=== PATIENT | male | born 1970 | race Caucasian/White ===

== ENCOUNTER 2016-11-14 09:03 | Inpatient (IN) | payer MEDICARE ==
[~2016-11-14] VITALS: Ht 170.2 cm; Wt 68.9 kg
[~2016-11-14 09:03] MED LIST: DIVA500T69 PO; HALO10 PO; HALOD50I IM; LEVE500T53 PO; VARE0.5T PO
[2016-11-14 09:32] VITALS: BP 119/75
[2016-11-14] MEDS ORDERED: HALOPERIDOL 5 MG TABLET PO PRN (09:45)
[2016-11-14] MEDS ORDERED: ZOLPIDEM TARTRATE 10 MG TABLET PO PRN (09:45)
[2016-11-14] MEDS ORDERED: ALBUTEROL SULFATE HFA 90 MCG/PUFF 8 GM INHALER IH PRN (10:45)
[2016-11-14 11:22] VITALS: BP 120/63
[2016-11-14] MEDS ORDERED: MAGNESIUM HYDROXIDE SUSPENSION 30 ML UDCUP PO PRN (12:00)
[2016-11-14] MEDS ORDERED: TUBERCULIN, PURIFIED PROTEIN DERIVATIVE 5 TU/0.1 ML SYG ID ONE (12:00)
[2016-11-14] MEDS ORDERED: GuaiFENesin/D-METHORPHAN [SUGAR-FREE] 200-20MG/10 ML SYRUP UDCUP PO PRN (12:00)
[2016-11-14] MEDS ORDERED: ACETAMINOPHEN 325 MG TABLET PO PRN (12:00)
[2016-11-14] MEDS ORDERED: HALOPERIDOL DECANOATE 50 MG/ML VIAL IM ONE (12:00)
[2016-11-14] MEDS ORDERED: PROMETHAZINE HCL 25 MG TABLET PO PRN (12:00)
[2016-11-14] MEDS ORDERED: LOPERAMIDE HCL 2 MG CAPSULE PO PRN (12:00)
[2016-11-14] MEDS ORDERED: HydrOXYzine PAMOATE 50 MG CAPSULE PO PRN (12:00)
[2016-11-14] MEDS ORDERED: MAG HYDROX/AL HYDROX/SIMETH ES 30 ML SUSPENSION UDCUP PO PRN (12:00)
[2016-11-14] MEDS: LORazepam 2 MG TABLET PO PRN ×2 (13:24→23:08)
[2016-11-14 16:00] VITALS: BP 116/74
[2016-11-14] MEDS: THIAMINE HCL 100 MG TABLET PO SCH (17:23)
[2016-11-14] MEDS: LevETIRAcetam 500 MG TABLET PO SCH (17:23)
[2016-11-14] MEDS: NICOTINE 21 MG/24 HOUR PATCH TD SCH (17:23)
[2016-11-14] MEDS: DIVALPROEX SODIUM 500 MG ER TABLET PO SCH (20:43)
[2016-11-14] MEDS: HALOPERIDOL 10 MG TABLET PO SCH (20:43)
[2016-11-14] MEDS ORDERED: HALOPERIDOL 10 MG TABLET PO SCH (21:00)
[2016-11-15 03:38] VITALS: BP 118/81
[2016-11-15 08:18] VITALS: BP 108/61
[2016-11-15] MEDS: FOLIC ACID 1 MG TABLET PO SCH (09:21)
[2016-11-15] MEDS: MULTIVITAMINS WITH MINERALS, THERAPEUTIC TABLET PO SCH (09:22)
[2016-11-15] MEDS: NICOTINE 21 MG/24 HOUR PATCH TD SCH (09:22)
[2016-11-15] MEDS: THIAMINE HCL 100 MG TABLET PO SCH ×2 (09:22→16:09)
[2016-11-15] MEDS: LevETIRAcetam 500 MG TABLET PO SCH ×2 (09:22→16:09)
[2016-11-15] MEDS: LORazepam 2 MG TABLET PO PRN (14:32)
[2016-11-15] MEDS: QUEtiapine FUMARATE 100 MG TABLET PO PRN (16:23)
[2016-11-15 16:42] VITALS: BP 112/83
[2016-11-15] MEDS: HALOPERIDOL 10 MG TABLET PO SCH (20:17)
[2016-11-15] MEDS: DIVALPROEX SODIUM 500 MG ER TABLET PO SCH (20:17)
[2016-11-16 01:52] VITALS: BP 115/81
[2016-11-16] MEDS: LORazepam 2 MG TABLET PO PRN ×2 (07:26→11:31)
[2016-11-16 08:26] VITALS: BP 106/60
[2016-11-16] MEDS: THIAMINE HCL 100 MG TABLET PO SCH ×2 (08:49→17:04)
[2016-11-16] MEDS: MULTIVITAMINS WITH MINERALS, THERAPEUTIC TABLET PO SCH (08:49)
[2016-11-16] MEDS: FOLIC ACID 1 MG TABLET PO SCH (08:49)
[2016-11-16] MEDS: NICOTINE 21 MG/24 HOUR PATCH TD SCH (08:49)
[2016-11-16] MEDS: LevETIRAcetam 500 MG TABLET PO SCH ×2 (08:49→17:04)
[2016-11-16] MEDS: QUEtiapine FUMARATE 100 MG TABLET PO PRN ×2 (13:14→17:39)
[2016-11-16 16:08] VITALS: BP 119/76
[2016-11-16] MEDS: HALOPERIDOL 10 MG TABLET PO SCH (20:37)
[2016-11-16] MEDS: DIVALPROEX SODIUM 500 MG ER TABLET PO SCH (20:38)
[2016-11-17 00:03] VITALS: BP 121/77
[2016-11-17 01:59] VITALS: BP 105/87
[2016-11-17] MEDS: QUEtiapine FUMARATE 100 MG TABLET PO PRN ×2 (01:59→16:09)
[2016-11-17] MEDS: FOLIC ACID 1 MG TABLET PO SCH (08:21)
[2016-11-17] MEDS: LevETIRAcetam 500 MG TABLET PO SCH ×2 (08:21→16:09)
[2016-11-17] MEDS: MULTIVITAMINS WITH MINERALS, THERAPEUTIC TABLET PO SCH (08:21)
[2016-11-17] MEDS: THIAMINE HCL 100 MG TABLET PO SCH ×2 (08:21→16:09)
[2016-11-17] MEDS: NICOTINE 21 MG/24 HOUR PATCH TD SCH (08:21)
[2016-11-17] MEDS: LORazepam 2 MG TABLET PO PRN (11:53)
[2016-11-17 16:10] VITALS: BP 117/76
[2016-11-17] MEDS: IBUPROFEN 400 MG TABLET PO PRN (16:10)
[2016-11-17] MEDS: HALOPERIDOL 10 MG TABLET PO SCH (20:04)
[2016-11-17] MEDS: DIVALPROEX SODIUM 500 MG ER TABLET PO SCH (20:04)
[2016-11-18 00:01] VITALS: BP 121/70
[2016-11-18] MEDS: QUEtiapine FUMARATE 100 MG TABLET PO PRN ×3 (02:01→21:55)
[2016-11-18 08:22] VITALS: BP 103/69
[2016-11-18] MEDS: LevETIRAcetam 500 MG TABLET PO SCH ×2 (08:42→16:41)
[2016-11-18] MEDS: FOLIC ACID 1 MG TABLET PO SCH (08:42)
[2016-11-18] MEDS: NALTREXONE HCL 50 MG TABLET PO SCH (08:42)
[2016-11-18] MEDS: THIAMINE HCL 100 MG TABLET PO SCH ×2 (08:42→16:41)
[2016-11-18] MEDS: MULTIVITAMINS WITH MINERALS, THERAPEUTIC TABLET PO SCH (08:42)
[2016-11-18] MEDS: NICOTINE 21 MG/24 HOUR PATCH TD SCH (08:42)
[2016-11-18] MEDS: LORazepam 2 MG TABLET PO PRN (13:10)
[2016-11-18 16:37] VITALS: BP 113/79
[2016-11-18] MEDS: HALOPERIDOL 10 MG TABLET PO SCH (20:49)
[2016-11-18] MEDS: DIVALPROEX SODIUM 500 MG ER TABLET PO SCH (20:49)
[2016-11-19 06:01] VITALS: BP 103/73
[2016-11-19 06:57] VITALS: BP 112/73
[2016-11-19] MEDS: LORazepam 2 MG TABLET PO PRN ×2 (06:58→13:20)
[2016-11-19] MEDS: LevETIRAcetam 500 MG TABLET PO SCH ×2 (08:33→16:35)
[2016-11-19] MEDS: NICOTINE 21 MG/24 HOUR PATCH TD SCH (08:33)
[2016-11-19] MEDS: FOLIC ACID 1 MG TABLET PO SCH (08:33)
[2016-11-19] MEDS: NALTREXONE HCL 50 MG TABLET PO SCH (08:33)
[2016-11-19] MEDS: MULTIVITAMINS WITH MINERALS, THERAPEUTIC TABLET PO SCH (08:33)
[2016-11-19] MEDS: THIAMINE HCL 100 MG TABLET PO SCH ×2 (08:33→16:35)
[2016-11-19 16:17] VITALS: BP 122/68
[2016-11-19] MEDS: QUEtiapine FUMARATE 100 MG TABLET PO PRN (19:34)
[2016-11-19] MEDS: DIVALPROEX SODIUM 500 MG ER TABLET PO SCH (21:00)
[2016-11-19] MEDS ORDERED: QUEtiapine FUMARATE 200 MG TABLET PO SCH (21:00)
[2016-11-20 00:01] VITALS: BP 105/68
[2016-11-20 02:25] VITALS: BP 111/61
[2016-11-20] MEDS: QUEtiapine FUMARATE 100 MG TABLET PO PRN (02:30)
[2016-11-20] MEDS: MULTIVITAMINS WITH MINERALS, THERAPEUTIC TABLET PO SCH (08:18)
[2016-11-20] MEDS: FOLIC ACID 1 MG TABLET PO SCH (08:18)
[2016-11-20] MEDS: THIAMINE HCL 100 MG TABLET PO SCH ×2 (08:18→16:37)
[2016-11-20] MEDS: NICOTINE 21 MG/24 HOUR PATCH TD SCH (08:18)
[2016-11-20] MEDS: LevETIRAcetam 500 MG TABLET PO SCH ×2 (08:18→16:37)
[2016-11-20] MEDS: NALTREXONE HCL 50 MG TABLET PO SCH (08:18)
[2016-11-20 08:39] VITALS: BP 106/60
[2016-11-20] MEDS ORDERED: TUBERCULIN, PURIFIED PROTEIN DERIVATIVE 5 TU/0.1 ML SYG ID ONE (11:00)
[2016-11-20] MEDS: LORazepam 2 MG TABLET PO PRN (11:12)
[2016-11-20] MEDS: TRIHEXYPHENIDYL HCL 2 MG TABLET PO SCH ×2 (13:00→17:00)
[2016-11-20 16:10] VITALS: BP 111/83
[2016-11-20] MEDS ORDERED: QUEtiapine FUMARATE 200 MG TABLET PO SCH (21:00)
[2016-11-21 06:56] VITALS: BP 105/77
[2016-11-21] MEDS: NALTREXONE HCL 50 MG TABLET PO SCH (08:23)
[2016-11-21] MEDS: MULTIVITAMINS WITH MINERALS, THERAPEUTIC TABLET PO SCH (08:23)
[2016-11-21] MEDS: LevETIRAcetam 500 MG TABLET PO SCH ×2 (08:23→16:24)
[2016-11-21] MEDS: NICOTINE 21 MG/24 HOUR PATCH TD SCH (08:24)
[2016-11-21] MEDS: FOLIC ACID 1 MG TABLET PO SCH (08:24)
[2016-11-21] MEDS: THIAMINE HCL 100 MG TABLET PO SCH ×2 (08:24→16:24)
[2016-11-21 08:38] VITALS: BP 110/68
[2016-11-21] MEDS: TRIHEXYPHENIDYL HCL 2 MG TABLET PO SCH (09:00)
[2016-11-21] MEDS: LORazepam 2 MG TABLET PO PRN (10:28)
[2016-11-21 16:08] VITALS: BP 135/85
[2016-11-21] MEDS: QUEtiapine FUMARATE 100 MG TABLET PO PRN (17:12)
[2016-11-21] MEDS: QUEtiapine FUMARATE 300 MG TABLET PO SCH (21:14)
[2016-11-22 03:56] VITALS: BP 100/62
[2016-11-22] MEDS: IBUPROFEN 400 MG TABLET PO PRN (03:59)
[2016-11-22 08:13] VITALS: BP 102/66
[2016-11-22] MEDS: NALTREXONE HCL 50 MG TABLET PO SCH (09:12)
[2016-11-22] MEDS: THIAMINE HCL 100 MG TABLET PO SCH ×2 (09:12→16:46)
[2016-11-22] MEDS: FOLIC ACID 1 MG TABLET PO SCH (09:12)
[2016-11-22] MEDS: MULTIVITAMINS WITH MINERALS, THERAPEUTIC TABLET PO SCH (09:12)
[2016-11-22] MEDS: LevETIRAcetam 500 MG TABLET PO SCH ×2 (09:12→16:46)
[2016-11-22] MEDS: NICOTINE 21 MG/24 HOUR PATCH TD SCH (09:13)
[2016-11-22] MEDS: LORazepam 2 MG TABLET PO PRN (12:43)
[2016-11-22 16:00] VITALS: BP 121/82
[2016-11-22] MEDS: QUEtiapine FUMARATE 100 MG TABLET PO PRN (17:22)
[2016-11-22] MEDS: QUEtiapine FUMARATE 300 MG TABLET PO SCH (21:34)
[2016-11-23 06:54] VITALS: BP 105/70
[2016-11-23] MEDS: LORazepam 2 MG TABLET PO PRN ×2 (07:05→14:01)
[2016-11-23] MEDS: MULTIVITAMINS WITH MINERALS, THERAPEUTIC TABLET PO SCH (09:43)
[2016-11-23] MEDS: LevETIRAcetam 500 MG TABLET PO SCH ×2 (09:43→16:37)
[2016-11-23] MEDS: NICOTINE 21 MG/24 HOUR PATCH TD SCH (09:44)
[2016-11-23] MEDS: FOLIC ACID 1 MG TABLET PO SCH (09:44)
[2016-11-23] MEDS: THIAMINE HCL 100 MG TABLET PO SCH ×2 (09:44→16:37)
[2016-11-23] MEDS: NALTREXONE HCL 50 MG TABLET PO SCH (09:44)
[2016-11-23 16:23] VITALS: BP 123/72
[2016-11-23] MEDS: QUEtiapine FUMARATE 300 MG TABLET PO SCH (20:27)
[2016-11-24 05:30] VITALS: BP 113/72
[2016-11-24] MEDS: LORazepam 2 MG TABLET PO PRN (05:34)
[2016-11-24 08:39] VITALS: BP 102/62
[2016-11-24] MEDS: MULTIVITAMINS WITH MINERALS, THERAPEUTIC TABLET PO SCH (08:49)
[2016-11-24] MEDS: THIAMINE HCL 100 MG TABLET PO SCH (08:49)
[2016-11-24] MEDS: FOLIC ACID 1 MG TABLET PO SCH (08:49)
[2016-11-24] MEDS: NICOTINE 21 MG/24 HOUR PATCH TD SCH (08:49)
[2016-11-24] MEDS: LevETIRAcetam 500 MG TABLET PO SCH (08:49)
[2016-11-24] MEDS: NALTREXONE HCL 50 MG TABLET PO SCH (08:49)
[2016-11-24] MEDS: QUEtiapine FUMARATE 100 MG TABLET PO PRN (12:01)
[2016-11-24] MEDS ORDERED: LEVE500T53 PO (12:04)
[2016-11-24] MEDS ORDERED: QUET200T29 PO (12:04)
[2016-11-24] MEDS ORDERED: NALT50 PO ×2 (12:04→12:17)
[2016-11-24] MEDS ORDERED: QUET200T PO (12:17)
[2016-11-24] MEDS ORDERED: QUEtiapine FUMARATE 200 MG TABLET PO SCH (21:00)
[2016-11-28] MEDS ORDERED: HALOPERIDOL DECANOATE 50 MG/ML VIAL IM SCH (09:00)
== END 2016-11-24 14:35 | disposition home or self-care (01) | DRG 885 ==
LOC: B2X 09:48
PROVIDERS: ADMIT Psychiatry & Neurology Psychiatry; ATTEND Psychiatry & Neurology Psychiatry
PROC: GZ51ZZZ Individual Psychotherapy, Behavioral (ICD-10-PCS; principal; 2016-11-14)
DX: F25.0 Schizoaffective disorder, bipolar type (principal); R45.851 Suicidal ideations; F12.90 Cannabis use, unspecified, uncomplicated; F17.210 Nicotine dependence, cigarettes, uncomplicated; F70 Mild intellectual disabilities; J45.909 Unspecified asthma, uncomplicated; K21.9 Gastro-esophageal reflux disease without esophagitis; K40.90 Unilateral inguinal hernia, without obstruction or gangrene, not specified as recurrent; R56.9 Unspecified convulsions; Z53.29 Procedure and treatment not carried out because of patient's decision for other reasons; F19.10 Other psychoactive substance abuse, uncomplicated; Z91.19 Patient's noncompliance with other medical treatment and regimen; Z79.899 Other long term (current) drug therapy; Z59.0 Homelessness; Z65.3 Problems related to other legal circumstances
CPT/HCPCS: J1631

== ENCOUNTER → 2017-09-18 | Outpatient (CLI) | payer MEDICARE, MEDICAID ==
[~2017-09-18] MED LIST changes: -DIVA500T69 PO; -HALO10 PO; -HALOD50I IM; +NALT50TA6 PO; +QUET200T29 PO; -VARE0.5T PO
[2017-09-18 16:39] LABS: CHOL/HDL RATIO 3.8 (4.2-7.3)
[2017-09-18 17:25] LABS: HEMOGLOBIN A1C 5.7 % (4.5-6.2)
== END | disposition home or self-care (01) ==
LOC: LABMN 11:00
PROVIDERS: ATTEND Psychiatry & Neurology Psychiatry
DX: F25.9 Schizoaffective disorder, unspecified (principal); R79.89 Other specified abnormal findings of blood chemistry
CPT/HCPCS: 83036